=== PATIENT | female | born 1950 | race Caucasian/White ===

== ENCOUNTER 2023-03-08 10:33 | Outpatient (CLI) | payer MEDICARE | END 2023-03-08 10:34 | disposition home or self-care (01) | LOC: RAD 10:33 | PROVIDERS: ATTEND Internal Medicine Gastroenterology | DX: J30.9 Allergic rhinitis, unspecified (principal); F43.21 Adjustment disorder with depressed mood; R09.89 Other specified symptoms and signs involving the circulatory and respiratory systems; K44.9 Diaphragmatic hernia without obstruction or gangrene; K22.89 Other specified disease of esophagus | CPT/HCPCS: 74220 ==